=== PATIENT | female | born 1970 | race Caucasian/White ===

== ENCOUNTER → 2016-03-11 | Outpatient (CLI) | payer BC, OTHER ==
[~2016-03-11] MED LIST: /ESOM40CA OR; BABY81CH OR; FERR325T PO; IBUP600T OR; IBUP800T OR; METO50TA4 PO; POTA75TA PO; [UNRECOGNIZED DRUG - CODE] PO; [UNRECOGNIZED DRUG - OTHER]; [UNRECOGNIZED DRUG - OTHER] PO; [UNRECOGNIZED DRUG - OTHER] PO; doc-q-lace PO
--- NOTE | 2016-03-15 14:48 | REPMRS ---
Patient History The patient states she has not had a clinical breast exam in over a year. Family history of ovarian cancer in sister at age 27. Digital Woman Screen Mammo: March 11, 2016 - Exam #: [id number] Bilateral CC and MLO view(s) were taken. Technologist: Kristyn Pérez, Technologist Prior study comparison: 2014, bilateral screening mammogram, performed at [facility]. July 11, 2013, digital bilateral screening mammo, performed at [facility]. February 02, 2013, digital bilateral screening mammo, performed at [facility]. FINDINGS: There are scattered fibroglandular densities. There has been no change in the appearance of the mammogram from the prior studies. There is a mild amount of scattered fibroglandular density which is fairly symmetric. There is no interval development of dominant mass, architectural distortion, or clustered microcalcification suggestive of malignancy. ASSESSMENT: BI-RADS/ACR category 1 mammogram. Negative. Recommendation Routine screening mammogram in 1 year (for women over age 40). This mammogram was interpreted with the aid of an FDA-approved computer-aided dectection system. Electronically Signed By: Gadiel Lopez MD 03/15/16 [id number]
== END ==
LOC: M WHC 16:07
PROVIDERS: ATTEND Internal Medicine
DX: N60.19 Diffuse cystic mastopathy of unspecified breast (principal)

== ENCOUNTER → 2016-09-23 | Outpatient (CLI) | payer OTHER, BC ==
--- NOTE | 2016-09-23 12:55 | REP ---
Right thumb four views : There is no fracture or dislocation. Mineralization and joint spaces are normal. There are no calcifications or foreign bodies. Impression: Negative right thumb. Signed by Stefano Thurman MD 09/23/2016 12:47 P
== END ==
LOC: M LRY 12:27
PROVIDERS: ATTEND Nurse Practitioner Family
DX: S69.91XA Unspecified injury of right wrist, hand and finger(s), initial encounter (principal); X58.XXXA Exposure to other specified factors, initial encounter; Y92.89 Other specified places as the place of occurrence of the external cause; Y93.89 Activity, other specified; Y99.8 Other external cause status

== ENCOUNTER → 2017-10-11 | Outpatient (CLI) | payer BC, OTHER | LOC: M WHC 16:18 | DX: Z12.31 Encounter for screening mammogram for malignant neoplasm of breast (principal) | CPT/HCPCS: 77067 ==

== ENCOUNTER → 2018-11-23 | Outpatient (CLI) | payer BC ==
[~2018-11-23] MED LIST changes: -/ESOM40CA OR; +NEXI1CAP3 OR
--- NOTE | 2018-11-24 07:58 | REPMRS ---
Patient History The patient states she has not had a clinical breast exam in over a year. Family history of ovarian cancer at age 27 in sister. No Hormone Replacement Therapy 3D TOMOSYNTHESIS WAS PERFORMED. [facility] for [facility] 9.4%. Digital Woman Screen Mammo: November 23, 2018 - Exam #: [id number] Bilateral CC and MLO view(s) were taken. Technologist: Diane Moon Technologist Prior study comparison: October 11, 2017, bilateral digital woman screen mammo performed at [facility]. March 11, 2016, digital woman screen mammo performed at [facility]. FINDINGS: There are scattered fibroglandular densities. There has been no change in the appearance of the mammogram from the prior studies. There is a mild amount of residual fibroglandular tissue which is fairly symmetric. There is no interval development of dominant mass, architectural distortion, or clustered microcalcification suggestive of malignancy. Assessment: BI-RADS/ACR category 1 mammogram. Negative Mammogram. Recommendation Routine screening mammogram in 1 year (for women over age 40). This mammogram was interpreted with the aid of an FDA-approved computer-aided dectection system. Electronically Signed By: Stefano Wiley MD 11/23/18 [id number]
== END ==
LOC: M WHC 15:49
PROVIDERS: ATTEND Internal Medicine
DX: Z12.31 Encounter for screening mammogram for malignant neoplasm of breast (principal); Z80.41 Family history of malignant neoplasm of ovary

== ENCOUNTER → 2018-12-09 | Outpatient (CLI) | payer BC ==
--- NOTE | 2018-12-09 13:46 | REP ---
Abdomen film: Single view. History: Flank pain. Findings: There are multiple surgical clips and sutures in the upper abdomen. The bowel gas pattern is normal. Air and stool is seen in a nondistended colon proximally and distally. There is air-filled small bowel loop in the left mid abdomen adjacent to anastomosis suture line. There are phleboliths in the pelvis. No mass organomegaly is seen. Psoas margins and flank stripes are intact. Impression: Unremarkable bowel gas pattern. Postoperative changes. Electronically Signed by Jon Lopez MD 12/09/2018 01:37 P
--- NOTE | 2018-12-09 13:49 | REP ---
Left rib series: Five views including PA chest. History: Rib pain on the left side. Comparison chest x-ray December 07, 2009. Findings: PA chest x-ray shows no evidence of pneumothorax or hydrothorax. Mediastinum is not widened. No infiltrate is seen in the lung trujillo. Heart size is normal. Multiple views of the left rib cage demonstrate extensive postoperative changes in the left upper quadrant of the abdomen. There is some retained contrast density in addition to surgical clips. A metallic ring-like structure is seen at the level of the gastroesophageal junction. No rib fracture or bony destructive lesion is seen. There is a granulomatous calcification in the left base. Impression: No rib lesions seen. Postoperative changes left upper quadrant of the abdomen. Electronically Signed by Jon Lopez MD 12/09/2018 01:41 P
== END ==
LOC: M LRY 13:06
PROVIDERS: ATTEND Nurse Practitioner Family
DX: R07.81 Pleurodynia (principal); R10.9 Unspecified abdominal pain

== ENCOUNTER → 2020-04-22 | Outpatient (CLI) | payer BC ==
--- NOTE | 2020-04-22 16:42 | REP ---
INDICATION: Z12.31 SCREENING MAMMO,FCD. COMPARISON: 11/23/2018 as well as other prior exams. TECHNIQUE: MLO and CC views bilateral breasts. FINDINGS: Mild scattered fibroglandular tissue is present. There is a round 8 mm nodular opacity in the left retroareolar region which appears partially circumscribed and partially ill-defined. No other mass or clustered microcalcifications are visualized. The Volpara volumetric breast density pattern is B. IMPRESSION: BIRADS/ACR category 0, incomplete. 8 mm nodular density in the left retroareolar region. Recommend spot compression views and ultrasound to further evaluate. This patient's Tyrer-Cuzick lifetime breast cancer risk assessment score is 9.1%. This mammogram was interpreted with the aid of an FDA-approved computer-aided detection system. The patient states she had a clinical breast exam in April 2020. The patient letter being requested is M0. RECOMMENDATION: Recommend spot compression views and ultrasound left breast. <Electronically signed by Stefano Wiley > 04/22/20 [id number]
== END ==
LOC: M WHC 14:46
PROVIDERS: ATTEND Internal Medicine
DX: Z12.39 Encounter for other screening for malignant neoplasm of breast (principal); R92.2 Inconclusive mammogram

== ENCOUNTER → 2020-05-05 | Outpatient (CLI) | payer BC ==
--- NOTE | 2020-05-05 11:25 | REP ---
INDICATION: ADDL VIEWS LEFT MAMMO/NODULE; LEFT BREAST NODULE. Screening mammography dated 22 April 2020 was BI-RADS category 0 because of a retroareolar nodular density 8 mm in diameter. COMPARISON: 22 April 2020, 23 November 2018, and 11 October 2017. TECHNIQUE: Magnified focal spot-compression craniocaudal, mediolateral oblique, and mediolateral views of the left breast are obtained. A non magnified true mediolateral view with 3D tomography is carried out. Targeted left breast sonography is performed. This mammogram was interpreted with the aid of an FDA-approved computer-aided detection system. FINDINGS: Magnified focal spot-compression views the left breast confirm the presence of a well-circumscribed nodular density in the retroareolar region of the left breast, 8 mm in greatest diameter. This appears more prominent than on prior mammograms. No other suspicious mammographic abnormality. The Volpara volumetric breast density pattern is B.. Targeted ultrasound: Left breast sonography. Left breast is examined in the retroareolar region. A 0.8 x 0.7 x 0.3 cm cyst is seen just beneath the nipple which is felt to account for the mammographic opacity. This has benign ultrasound characteristics. IMPRESSION: BIRADS/ACR category 2 benign left breast mammographic and sonographic findings. 8 mm cyst identified accounting for the mammographic opacity. This patient's Tyrer-Cuzick lifetime breast cancer risk assessment score is 9.1%. RECOMMENDATION: Repeat screening mammography recommended 1 year (for women over 40). The patient letter being requested is M1. <Electronically signed by Gadiel Lopez > 05/05/20 [id number]
== END ==
LOC: M WHC 09:58
PROVIDERS: ATTEND Internal Medicine
DX: R92.8 Other abnormal and inconclusive findings on diagnostic imaging of breast (principal)
CPT/HCPCS: 76642; 77065; G0279

== ENCOUNTER → 2021-01-12 | Outpatient (CLI) | payer BC ==
--- NOTE | 2021-01-12 15:50 | REP ---
INDICATION: PELCIV PAIN COMPARISON: None. TECHNIQUE: Transabdominal pelvic ultrasound followed by transvaginal examination for better evaluation of the endometrium and adnexa with color Doppler evaluation of the ovaries. FINDINGS: Bladder is unremarkable and measures 6.3 x 6.6 x 7.3 cm. Prior hysterectomy. Bilateral ovaries are normal in vascularity without evidence for torsion. Right ovary measures 1.6 x 2.6 x 0.9 cm; R I = 0.54. Left ovary measures 2.2 x 1.3 x 1.8 cm includes 1.2 x 0.7 x 0.8 cm suspected hemorrhagic cyst; R I = 0.53. No pelvic fluid or adnexal mass lesion. IMPRESSION: Prior hysterectomy. Small suspected physiologic hemorrhagic cyst in the left ovary. <Electronically signed by Daniel Rosario > 01/12/21 [id number]
== END ==
LOC: M WHC 14:57
PROVIDERS: ATTEND Advanced Practice Midwife
DX: R10.2 Pelvic and perineal pain (principal)

== ENCOUNTER → 2021-06-05 | Outpatient (CLI) | payer BC | LOC: M WHC 15:35 | PROVIDERS: ATTEND Internal Medicine | DX: Z12.31 Encounter for screening mammogram for malignant neoplasm of breast (principal) ==

== ENCOUNTER → 2021-12-09 | Outpatient (REF) | payer BC | LOC: M PLALAB 17:04 | PROVIDERS: ATTEND Nurse Practitioner Family | DX: Z12.4 Encounter for screening for malignant neoplasm of cervix (principal); N95.2 Postmenopausal atrophic vaginitis | CPT/HCPCS: 87624; G0123 ==

== ENCOUNTER → 2022-06-11 | Outpatient (CLI) | payer BC | LOC: M WHC 13:04 | PROVIDERS: ATTEND Internal Medicine | DX: Z12.31 Encounter for screening mammogram for malignant neoplasm of breast (principal) ==

== ENCOUNTER → 2023-06-15 | Outpatient (CLI) | payer BC | LOC: M WHC 11:11 | PROVIDERS: ATTEND Nurse Practitioner Family | DX: Z12.31 Encounter for screening mammogram for malignant neoplasm of breast (principal); R10.2 Pelvic and perineal pain; N83.202 Unspecified ovarian cyst, left side; Z90.79 Acquired absence of other genital organ(s); N63.21 Unspecified lump in the left breast, upper outer quadrant ==

== ENCOUNTER → 2023-07-05 | Outpatient (CLI) | payer BC | LOC: M WHC 13:02 | PROVIDERS: ATTEND Nurse Practitioner Family | DX: Z12.31 Encounter for screening mammogram for malignant neoplasm of breast (principal); N63.21 Unspecified lump in the left breast, upper outer quadrant | CPT/HCPCS: 76642; 77065; G0279 ==

== ENCOUNTER → 2023-07-14 | Outpatient (CLI) | payer BC ==
[2023-07-14 09:20] VITALS: TEMP 98.5
[2023-07-14 10:24] VITALS: BP 128/80; O2SAT 100
== END ==
LOC: M WHCPRO 08:30
PROVIDERS: ATTEND Nurse Practitioner Family
DX: R92.8 Other abnormal and inconclusive findings on diagnostic imaging of breast (principal); N63.21 Unspecified lump in the left breast, upper outer quadrant